=== PATIENT | male | born 1990 | race Two or more races ===

== ENCOUNTER 2020-01-16 14:36 | Emergency (ER) | payer SELFPAY ==
[~2020-01-16] VITALS: Ht 182.9 cm; Wt 93.5 kg
--- NOTE | 2020-01-16 15:03 | NUR ---
Note pee in EDM - 01/16/20 at 1516 by [email or web address] PT HAS AN OPEN WOUND TO RIGHT ELBOW. PT STATES HE FELL WEEKS AGO, AND HAS SINCE REPEATEDLY KNOCKED OFF THE SCAB IT HEALED. WOUND OPEN, SCAB NOTED TO OUTER EDGE OF SKIN, CENTER OF WOUND OPEN AND ROUND WITH NO EDGE APPROXIMATION, TISSUE OVERHANGING WOUND WITH POCKET, POSSIBLE TUNNELING. APPROX 2CM X 1CM X .5CM DEEP
[2020-01-16 18:41] VITALS: BP 120/71
== END 2020-01-16 18:43 | disposition home or self-care (01) ==
LOC: ED 17:18
DX: S83.252A Bucket-handle tear of lateral meniscus, current injury, left knee, initial encounter (principal); W18.39XA Other fall on same level, initial encounter; Y93.89 Activity, other specified; Y92.89 Other specified places as the place of occurrence of the external cause; Y99.8 Other external cause status
CPT/HCPCS: 99284

== ENCOUNTER 2020-03-05 07:01 | Day surgery (SDC) | payer MEDICAID ==
[~2020-03-05] VITALS: Ht 182.9 cm; Wt 89.0 kg
[~2020-03-05 07:01] MED LIST: LIDOCAINE 1%, 20ML ONE; ROPIvacaine/PF 0.5%, 30 ML ONE
[2020-03-05] MEDS ORDERED: FENTANYL PF 250 MCG/5ML ONE (07:13)
[2020-03-05] MEDS ORDERED: MIDAZOLAM 1 MG/ML, 2ML ONE (07:13)
[2020-03-05] MEDS ORDERED: SODIUM CHLORIDE 0.9% PF 10ML ONE (07:15)
[2020-03-05] MEDS ORDERED: CEFAZOLIN 1,000 MG ONE ×2 (07:15)
[2020-03-05] MEDS ORDERED: PROPOFOL 10 MG/ML, 20ML ONE ×2 (07:16→08:22)
[2020-03-05] MEDS ORDERED: LACTATED RINGERS 1,000 ML IV SCH (07:38)
[2020-03-05] MEDS ORDERED: CHLORHEXIDINE 15 ML UDC ONE (07:41)
[2020-03-05] MEDS ORDERED: OXYcodone 5 MG/5 ML ORAL.SOL UDC PO PRN (08:00)
[2020-03-05] MEDS ORDERED: ONDANSETRON 2MG/ML, 2ML IVPush PRN (08:00)
[2020-03-05] MEDS ORDERED: hydrALAzine 20 MG/ML, 1ML IV PRN (08:00)
[2020-03-05] MEDS ORDERED: LABETALOL 5MG/ML, 20ML IV PRN (08:00)
[2020-03-05] MEDS ORDERED: HYDROmorphone 1 MG/ML, 1ML INJ IVPush PRN (08:00)
[2020-03-05] MEDS ORDERED: morphine SULFATE 10 MG/ML, 1ML IVPush PRN (08:00)
[2020-03-05] MEDS ORDERED: MEPERIDINE/PF 25MG/0.5ML IVPush PRN (08:00)
[2020-03-05] MEDS ORDERED: CHLORHEXIDINE 15 ML UDC MM ONE (08:00)
[2020-03-05] MEDS ORDERED: ACETAMINOPHEN 325 MG TABLET PO PRN (08:00)
[2020-03-05] MEDS ORDERED: NONE PER PT (08:15)
[2020-03-05 08:17] VITALS: BP 148/97
[2020-03-05] MEDS ORDERED: KETOROLAC 30 MG/1 ML ONE (08:30)
[2020-03-05] MEDS ORDERED: OXYcodone 5 MG/5 ML ORAL.SOL UDC ONE (09:17)
[2020-03-05] MEDS ORDERED: ACETAMINOPHEN 650 MG/20.3 ML UDC ONE (09:17)
[2020-03-05] MEDS ORDERED: FENTANYL PF 100 MCG/2ML ONE (09:17)
[2020-03-05] MEDS: FENTANYL PF 100 MCG/2ML IV PRN ×2 (09:22→09:27)
== END 2020-03-05 12:15 | disposition home or self-care (01) ==
LOC: OUT 07:01
PROVIDERS: ATTEND Orthopaedic Surgery
DX: S83.272A Complex tear of lateral meniscus, current injury, left knee, initial encounter (principal); Z11.59 Encounter for screening for other viral diseases; M17.12 Unilateral primary osteoarthritis, left knee; M65.862 Other synovitis and tenosynovitis, left lower leg; Z79.1 Long term (current) use of non-steroidal anti-inflammatories (NSAID); X50.1XXA Overexertion from prolonged static or awkward postures, initial encounter; Y93.89 Activity, other specified; Y92.89 Other specified places as the place of occurrence of the external cause; Y99.8 Other external cause status
CPT/HCPCS: 29881; 36415; 87635; J0690; J1885; J2250; J2704; J2795; J3010; J7120

== ENCOUNTER 2021-05-04 08:56 | Emergency (ER) | payer MEDICAID ==
[~2021-05-04] VITALS: Ht 182.9 cm; Wt 101.5 kg
[~2021-05-04 08:56] MED LIST changes: -LIDOCAINE 1%, 20ML ONE; +NONE PER PT; -ROPIvacaine/PF 0.5%, 30 ML ONE
[2021-05-04 08:57] VITALS: BP 137/85
--- NOTE | 2021-05-04 09:16 | NUR ---
online program coordinator completed.
--- NOTE | 2021-05-04 09:23 | NUR ---
PA at bedside for exam.
== END 2021-05-04 09:40 | disposition home or self-care (01) ==
LOC: ED 09:35
DX: K02.9 Dental caries, unspecified (principal)
CPT/HCPCS: 99283